=== PATIENT | female | born 1935 | race African-American/Black ===

== ENCOUNTER 2018-02-09 13:53 | Emergency (ER) | payer MEDICARE, OTHER, SELFPAY ==
[2018-02-09 14:08] VITALS: BP 159/83; PULSE 95; RESP 20; TEMP 36.1; O2SAT 99
--- NOTE | 2018-02-09 14:11 | DI.RAD.S_ITS ---
PROCEDURE: XR WRIST RT MIN 3V INDICATIONS: fall, rt wrist pain TECHNIQUE: 4 views of the wrist were acquired. COMPARISON: None. FINDINGS: Bones: No fractures or dislocations. No suspicious bony lesions. Mild degenerative changes are noted involving the basal joint of the thumb. Chondrocalcinosis of the wrist is noted. There also are degenerative changes of the metacarpophalangeal joints. Chondrocalcinosis of the 1st metacarpophalangeal joint is present. Soft tissues: No suspicious soft tissue calcifications. IMPRESSION: 1. No acute fracture of the right wrist. 2. 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 Please correlate clinically to exclude calcium pyrophosphate deposition disease. Dictated by: Jon Medrano M.D. on 02/09/2018 at 14:20 Approved by: Jon Medrano M.D. on 02/09/2018 at 14:23
--- NOTE | 2018-02-09 15:13 | ED.UPPEXIN ---
HPI - Extremity Injury (Upper) <NEIL Ellis - Last Filed: 02/09/18 22:39> General Chief Complaint: Extremity Injury, Upper Stated Complaint: fall on Friday,right hand pain Time Seen by Provider: 02/09/18 15:13 Source: patient Mode of arrival: other Limitations: no limitations History of Present Illness HPI narrative: 82-year-old female with history of breast cancer and spinal cerebral ataxia who is a nonsmoker here for complaint of pain into her right wrist. She states that she had a ground level fall 3 days ago when her walker slipped out from underneath her caused her to fall on outstretched hand. Pain limited to the right wrist. She denies any head pain. She denies any head trauma. She normally uses the walker for embolization and she was able to ambulate with a walker into the emergency room today. She reports increased pain with motion of the right wrist. She denies any other injuries or concerns at this point. MD complaint: injury to: right and wrist Related Data Home Medications Medication Instructions Recorded Confirmed metformin 500 mg PO BID 09/25/17 02/09/18 metoprolol tartrate 25 mg PO BID 09/25/17 02/09/18 Allergies Allergy/AdvReac Type Severity Reaction Status Date / Time No Known Drug Allergies Allergy Verified 02/09/18 15:37 Review of Systems <NEIL Ellis - Last Filed: 02/09/18 22:39> Constitutional Denies chills, Denies fever(s), Denies lethargy and Denies weakness Eyes Denies change in vision, Denies eye discharge, Denies irritation and Denies loss of vision ENT Ears, Nose, Mouth, and Throat: Denies change in voice, Denies neck pain and Denies sore throat Cardiovascular Denies chest pain, Denies irregular heart rhythm, Denies lightheadedness, Denies palpitations, Denies dyspnea, Denies dyspnea on exertion and Denies orthopnea Respiratory Denies cough, Denies dyspnea, Denies dyspnea on exertion and Denies wheezing Gastrointestinal Gastrointestinal: Denies abdominal pain, Denies change in bowel habits, Denies diarrhea, Denies nausea and Denies vomiting Musculoskeletal Denies neck pain Comments: Right wrist pain Integumentary/Breasts Denies pruritus, Denies erythema, Denies rash and Denies wounds Neurologic Denies confusion, Denies loss of vision and Denies weakness Psychiatric Denies anxiety, Denies confusion, Denies depression, Denies homicidal ideation and Denies suicidal ideation Endocrine Denies palpitations Allergic/Immunologic Denies wheezing Exam <NEIL Ellis - Last Filed: 02/09/18 22:39> Initial Vital Signs Initial Vital Signs: Vital Signs Temperature 96.9 F L 02/09/18 14:08 Pulse Rate 95 H 02/09/18 14:08 Respiratory Rate 20 02/09/18 14:08 Blood Pressure 159/83 H 02/09/18 14:08 Pulse Oximetry 99 02/09/18 14:08 Const General: cooperative and well developed Nutritional Appearance: well nourished Orientation: alert, awake, oriented x3 and not confused HENLA Mouth: oral mucosae normal and moist mucous membranes Eyes Conjunctivae: conjunctivae normal Sclera: sclerae normal Pupils: PERRL EOM: EOM intact bilaterally Resp Effort & Inspection: normal respiratory effort, able to speak in complete sentences, no respiratory distress and no use of accessory muscles Auscultation: clear to auscultation bilaterally, no rales, no rhonchi and no wheezes Cardio Rate: regular rate Rhythm: regular rhythm Heart Sounds: no click, no gallops, no murmurs and no rubs Pulses: normal peripheral pulses Skin General: no rashes or lesions noted, No jaundice and No petechiae Neuro General: alert, oriented x3, gait normal and no focal motor deficits Speech: speech normal Extrem Other: Right wrist with no sign trauma. No ecchymosis. No swelling. No open lesions. Distal sensation is intact. Distal pulses are intact. Full range of motion. No snuffbox tenderness. <Chano Cornell DO - Last Filed: 02/10/18 07:23> Initial Vital Signs Initial Vital Signs: Vital Signs Temperature 96.9 F L 02/09/18 14:08 Pulse Rate 95 H 02/09/18 14:08 Respiratory Rate 20 02/09/18 14:08 Blood Pressure 159/83 H 02/09/18 14:08 Pulse Oximetry 99 02/09/18 14:08 Course <NEIL Ellis - Last Filed: 02/09/18 22:39> Orders Ordered: ED Orders 02/09/18 14:11 XR wrist RT min 3V Stat Vital Signs - 8 hr 02/09/18 14:08 Temperature 96.9 F L Pulse Rate 95 H Respiratory Rate 20 Blood Pressure 159/83 H Pulse Oximetry 99 <Chano Cornell DO - Last Filed: 02/10/18 07:23> Orders Ordered: ED Orders 02/09/18 14:11 XR wrist RT min 3V Stat Vital Signs - 8 hr 02/09/18 14:08 Temperature 96.9 F L Pulse Rate 95 H Respiratory Rate 20 Blood Pressure 159/83 H Pulse Oximetry 99 MDM - Extremity Injury (Upper) <NEIL Ellis - Last Filed: 02/09/18 22:39> Imaging Data Right wrist : Radiologist's impression: [address] [address] XRay Report Signed Patient: Kasey Gallo WMR#: [id number] : 7Acct:[id number] Age/Sex: 82 / FDate of Service: 02/09/18 Loc: ED Accession Number: [id number] Procedure: XR wrist RT min 3V Ordering Provider: Semaj Cortes PROCEDURE: XR WRIST RT MIN 3V INDICATIONS: fall, rt wrist pain TECHNIQUE: 4 views of the wrist were acquired. COMPARISON: None. FINDINGS: Bones: No fractures or dislocations. No suspicious bony lesions. Mild degenerative changes are noted involving the basal joint of the thumb. Chondrocalcinosis of the wrist is noted. There also are degenerative changes of the metacarpophalangeal joints. Chondrocalcinosis of the 1st metacarpophalangeal joint is present. Soft tissues: No suspicious soft tissue calcifications. IMPRESSION: 1. No acute fracture of the right wrist. 2. 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 Please correlate clinically to exclude calcium pyrophosphate deposition disease. Dictated by: Jon Medrano M.D. on 02/09/2018 at 14:20 Approved by: Jon Medrano M.D. on 02/09/2018 at 14:23 [facility] Narrative Medical decision making narrative: X-ray of the right wrist was obtained was negative for any acute fractures or findings. Signs and symptoms presents as sprain to the right wrist. She is placed in a wrist brace for comfort and support. [id number] Tylenol or Motrin as needed for any discomfort. Follow up with primary care provider. Return emergency room for any worsening symptoms. Discharge Plan Departure Patient Disposition: Home Clinical Impression: Right wrist sprain Discharge Date/Time: 02/09/18 17:07 Interventions: ED Discharge Assessment Last Done: 02/09/18 17:06 Instructions: DI for Wrist Pain Activity Restrictions/Additional Instructions: X-ray the right wrist was obtained was negative for any fractures. Signs and symptoms presents as a wrist sprain. Use splint provided as directed for comfort and support. Use [id number] Tylenol or Motrin as needed for any discomfort. Rest area. Follow up with primary care provider later this week. For any worsening symptoms return to the emergency room. Prescriptions: No Action metformin 500 mg Tablet 500 mg PO BID RF: 0 metoprolol tartrate 25 mg Tablet 25 mg PO BID RF: 0 Referrals: De Moran MD [Primary Care Provider] - <Chano Cornell DO - Last Filed: 02/10/18 07:23> Cosign ED Attending Claire Attestation: I was available for consultation during this patient's emergency department encounter
--- NOTE | 2018-02-09 17:05 | PC.NURSE ---
Pt refuses splint. States has her own but it hurts when she wears it. Pts splint is old and worn out but continues to refuse our splint. Son will assist pt out
== END 2018-02-09 17:07 | disposition home or self-care (01) ==
PROVIDERS: Emergency Provider Nurse Practitioner Family; Family Provider Family Medicine; PCP Family Medicine
DX: S63.501A Unspecified sprain of right wrist, initial encounter (principal); W18.30XA Fall on same level, unspecified, initial encounter
CPT/HCPCS: 73110; 99282; 99283